=== PATIENT | female | born 1995 | race Caucasian/White ===

== ENCOUNTER 2017-08-13 23:24 | Outpatient (CLI) | END 2017-08-14 06:25 | disposition home or self-care (01) ==

== ENCOUNTER 2017-09-22 15:56 | Outpatient (CLI) | END 2017-09-22 19:30 | disposition home or self-care (01) ==

== ENCOUNTER 2017-09-22 23:40 | Emergency (ER) | END 2017-09-23 01:21 | disposition home or self-care (01) ==

== ENCOUNTER 2017-11-24 18:30 | Inpatient (IN) | END 2017-12-01 18:50 | disposition home or self-care (01) | DRG 766 ==